=== PATIENT | female | born 1985 | race Caucasian/White ===

== ENCOUNTER 2021-02-20 21:27 | Emergency (ER) | payer MEDICAID, SELFPAY ==
[2021-02-20 21:41] VITALS: BP 121/71; PULSE 108; RESP 18; TEMP 36.4; O2SAT 100; BMI 19.6
--- NOTE | 2021-02-20 21:51 | CTR_ITS ---
PROCEDURE INFORMATION: Exam: CT Head Without Contrast Exam date and time: 02/20/2021 9:51 PM Age: 35 years old Clinical indication: Injury or trauma; Fall; Blunt trauma (contusions or hematomas); Patient HX: Frontal lac; Additional info: Fall with head trauma-concussion symptoms TECHNIQUE: Imaging protocol: Computed tomography of the head without contrast. Radiation optimization: All CT scans at this facility use at least one of these dose optimization techniques: automated exposure control; mA and/or kV adjustment per patient size (includes targeted exams where dose is matched to clinical indication); or iterative reconstruction. COMPARISON: No relevant prior studies available. RADIATION DOSE METRICS: Total DLP (mGy-cm): 794.96 FINDINGS: Brain: Right frontal lobe area of encephalomalacia and localized parenchymal atrophy may reflect a chronic infarct or sequelae of prior trauma. Cerebral ventricles: No ventriculomegaly. Paranasal sinuses: Visualized sinuses are unremarkable. No fluid levels. Mastoid air cells: Visualized mastoid air cells are well aerated. Bones/joints: Unremarkable. No acute fracture. Soft tissues: Unremarkable. CT/CT head wo con* [id number] IMPRESSION: 1. Negative for intracranial hemorrhage or mass effect. 2. Right frontal lobe area of encephalomalacia and localized parenchymal atrophy may reflect a chronic infarct or sequelae of prior trauma.
--- NOTE | 2021-02-21 01:19 | W.ED.FALL ---
HPI - Fall General: Chief Complaint: Fall Stated Complaint: Fall lac on head Time Seen by Provider: 02/21/21 01:19 History of Present Illness: HPI Narrative: Ms. williamson is a 35-year-old lady with history of stroke who presents to the emergency department due to head injury. She experienced a fall secondary to tripping without preceding prodrome on 02/16. She fell forward and struck her knees and head. She denies loss of consciousness but did have a laceration. Laceration was not evaluated at that time nor was head injury. Since that time she has had neurologic symptoms. She endorses headache, the day or 2 after the fall she fell asleep and was unable to be woken up for a number of hours, she endorses falling asleep in the tub and then in bed. She is currently experience missing time, visual sensitivity, nausea, generalized malaise. Overall the course of symptoms has persisted with out recurrence of inability to be woken up. Intensity is moderate to severe. The history of stroke was a number of months ago without clear etiology. No other significant change in health, exacerbating, relieving factors identified. Review of Systems General: Reports: 10 or more systems reviewed and unremarkable except in HPI and below PFSH ED PFSH: Social History Smoking and tobacco status: current every day smoker cigarettes Packs smoked per day: 1 Quit status (tobacco): not considering quitting Second hand smoke exposure: Yes Alcohol intake: former Female Reproductive History: Date of last menstrual period: 02/18/21 Physical Exam Narrative: EXAM NARRATIVE: GENERAL/CONSTITUTIONAL -mildly ill-appearing. Nontoxic Eyes - PERRL, no conjunctival injection ENMT -healing approximately 2 cm irregular laceration to the forehead near midline, no evidence of surrounding erythema or evidence of infection. No other head trauma appreciated NECK - supple. trachea midline CARDIOVASCULAR -tachycardic rate and regular rhythm RESPIRATORY - clear to auscultation bilaterally. No retractions or accessory muscle use. ABDOMEN/GI - Nontender/Nondistended. No tenderness to percussion or evidence of peritonitis MSK - Extremities without obvious deformity or tenderness to palpation SKIN - Warm, Dry NEURO - alert and appropriately oriented. No focal neurologic deficits. Moves all extremities equally. Course ED course: - Patient was seen and evaluated by me at bedside - Patient placed on cardiac monitors, IV access obtained - Initial evaluation notable for exam as above -Symptom treatment ordered - Imaging notable for no evidence of acute traumatic injury. Abnormal appearance of right frontal lobe discussed with the patient. She denies prior head trauma but does endorse this history of unclear stroke. - Upon serial reexamination after treatment the patient was improved with near complete resolution of headache - Based on patient history, evaluation, labs, and imaging as interpreted the most likely cause of the patient's condition is concussive syndrome-likely severe. No witnessed or reported seizure-like episodes, no focal neurologic deficits appreciated on exam. - The results of ED evaluation were discussed with the patient including prescriptions and/or symptomatic cares (if applicable) including appropriate and responsible use, followup plan, and return precautions. The patient verbalized understanding and felt safe for discharge. - Patient discharged in satisfactory condition. Vital Signs: Vital signs: Vital Signs Temperature 97.6 F 02/20/21 21:41 Pulse Rate 80 02/21/21 04:05 Respiratory Rate 16 02/21/21 04:05 Blood Pressure 99/74 02/21/21 04:05 Pulse Oximetry 96 02/21/21 04:05 MDM - Fall Medical Records: Attestation: I reviewed the patient's medical records. Lab Data: Attestation: I reviewed the patient's lab results. Discharge Plan Discharge Patient Disposition: Home Clinical Impression: Concussion Condition: Stable Prescriptions: New ondansetron 4 mg tablet,disintegrating 4 mg PO Q8H PRN (Reason: nausea and vomiting) 5 Days Qty: 15 RF: 0 No Action fluticasone propionate [Flonase Allergy Relief] 50 mcg/actuation spray,suspension 1 spray INTRANASAL BID Qty: 18.2 RF: 0 chlorpheniramine-pseudoephed 2-30 mg/5 mL liquid 5 - 10 ml PO Q6H Qty: 200 RF: 0 Discharge Orders: Discharge ED (Routine); Ordered 02/21/21 Ordered By: Ian Ring Discharge Diet: Usual diet Discharge Activity: Increase activity as tolerated Patient Instructions: Concussion (ED), Post Concussion Syndrome (ED) Activity Restrictions/Additional Instructions: Thank you for visiting the emergency department. You were seen and evaluated for continued symptoms after a fall. I believe that the explanation for your symptoms is a rather severe concussion. As discussed the treatment is individual specific. I recommend limiting screen time and other brain stressing activities. I will give you antinausea medication. You may continue to use Tylenol and ibuprofen for headache. Please follow-up with your primary care provider. Return to the emergency department for worsening symptoms, inability to tolerate oral intake, or anything else that you are concerned about a feel needs emergency department evaluation. Your CT scan did note the following: Right frontal lobe area of encephalomalacia and localized parenchymal atrophy may reflect a chronic infarct or sequelae of prior trauma. This is far more significant than expected for age. Please follow-up with your primary care provider and have this evaluated in comparison to where your prior stroke was. Coding Level of Care Code ED Human Resources Benefits Assistant for Wilfredo Hamilton
[2021-02-21] MEDS: ondansetron 2 mg/ML SDV 2 mL 4 MG IVP (01:59)
[2021-02-21] MEDS: ketorolac 30 mg/mL INJ 15 MG IVP (01:59)
[2021-02-21] MEDS: sodium chloride 0.9% 1,000 ML 999 ML IV (02:03)
[2021-02-21] MEDS: acetaminophen 500 mg Tablet 1000 MG PO (02:05)
[2021-02-21 02:09] VITALS: BP 105/64; PULSE 76; RESP 16; O2SAT 99
[2021-02-21 04:05] VITALS: BP 99/74; PULSE 80; RESP 16; O2SAT 96
== END 2021-02-21 04:07 | disposition home or self-care (01) ==
PROVIDERS: Emergency Provider Emergency Medicine
DX: S06.0X9A Concussion with loss of consciousness of unspecified duration, initial encounter (principal); W01.0XXA Fall on same level from slipping, tripping and stumbling without subsequent striking against object, initial encounter; S01.81XA Laceration without foreign body of other part of head, initial encounter; F17.210 Nicotine dependence, cigarettes, uncomplicated
CPT/HCPCS: 70450; 96361; 96374; 96375; 99284; J1885; J2405; J7030

== ENCOUNTER → 2021-04-19 17:22 | Outpatient (BNVA) | payer MEDICAID, SELFPAY | PROVIDERS: Visit Provider Nurse Practitioner Family | DX: A64 Unspecified sexually transmitted disease (principal) | CPT/HCPCS: 87491; 87591; 87661 ==